=== PATIENT | female | born 1995 | race Caucasian/White ===

== ENCOUNTER 2020-02-03 05:17 | Emergency (ER) | payer OTHER ==
[~2020-02-03] VITALS: Ht 175.3 cm; Wt 158.3 kg
[2020-02-03 05:23] VITALS: BP 155/91
--- NOTE | 2020-02-03 05:29 | NUR ---
PT AMBULATED TO ER BED 4
--- NOTE | 2020-02-03 05:30 | NUR ---
Dr. Delong examining patient.
--- NOTE | 2020-02-03 05:41 | NUR ---
24 Y/O FEMALE PRESENTS TO ER WITH C/O SHARP, NON RADIATING BILATERAL FLANK PAIN X 2 DAYS. 12/31 PAIN. PT ALSO C/O DYSURIA, PRESSURE, FREQUENCY, AND OLIGURIA, BILATERAL LOWER PELVIC PAIN WITH TTP. DENIES TRAUMA/INJURY TO BILATERAL FLANK AREA, NAUSEA, VOMITING, DIARRHEA, SOB, COUGH, FEVER. LMP 12/26/19. VSS, R/R EQUAL, AND UNLABORED. SIDE RAIL X1, BED IN LOW POSITION. WILL CONTINUE TO MONITOR. NKDA DENIES PMH Addendum: 02/03/20 at 0552 by MEDWQ PT STATES SHE HAS IUD
[2020-02-03] MEDS ORDERED: CIPROFLOXACIN 250 MG TAB PO ONE (05:45)
[2020-02-03] MEDS ORDERED: IBUPROFEN 800 MG TAB PO ONE (05:45)
--- NOTE | 2020-02-03 06:13 | NUR ---
SENT URINE TO LAB.
[2020-02-03 06:18] VITALS: BP 155/91
--- NOTE | 2020-02-03 06:19 | NUR ---
Patient discharged with v/s stable. Written and verbal after care instructions given and explained. Patient alert, oriented and verbalized understanding of instructions. Ambulatory with steady gait. All questions addressed prior to discharge. ID band removed. Patient advised to follow up with PMD. Rx of IBUPROFEN; CIPROFLOXACIN given. Patient educated on indication of medication including possible reaction and side effects. Opportunity to ask questions provided and answered.
[2020-02-03 06:24] LABS: BILIRUBIN,URINE NEGATIVE (NEGATIVE); BLOOD, URINE 3+ (NEGATIVE); COLOR,URINE YELLOW (YELLOW); LEUKOCYTE ESTERASE ,URINE 1+ (NEGATIVE); NITRITE, URINE NEGATIVE (NEGATIVE); UGLUCOSE NEGATIVE (NEGATIVE)
[2020-02-03 06:34] LABS: APPEARANCE,URINE SLIGHTLY HAZY (CLEAR)
[2020-02-03 06:35] LABS: RBC,URINE 11-20 (MOD) /HPF (0-5); WBC,URINE 20-60 /HPF (0-5)
--- NOTE | 2020-02-06 07:35 | NUR ---
Urine culture received from lab. Culture and sensitivity received and shown to Dr. Escamilla. No new orders received. Treatment appropriate. No further care needed. Copy of C&S placed in discrepancy folder.
== END 2020-02-03 06:19 | disposition home or self-care (01) ==
LOC: MED 05:17
DX: R35.8 Other polyuria (principal); E66.9 Obesity, unspecified; Z90.49 Acquired absence of other specified parts of digestive tract; Z68.43 Body mass index [BMI] 50.0-59.9, adult
CPT/HCPCS: 81001; 81025; 87086; 87186; 99283